=== PATIENT | male | born 1960 | race African-American/Black ===

== ENCOUNTER 2020-01-27 09:20 | Outpatient (RCR) | payer OTHER ==
[~2020-01-27 09:20] MED LIST: ASPIRIN E.C.325 MG PO; ATORVASTATIN; BP pill; DIABETES MED; HCTZ 25MG25 MG PO; LOPRESSOR 225 MG/TAB PO; NORCO 325 MG-51 TAB PO; PEPCID 20MG TAB20 MG PO; PRILOSEC 20MG20 MG PO; TETRACYCLINE 250MG
[2020-02-05] MEDS ORDERED: GLUCOPHAGE850 MG/TAB PO (20:05)
[2020-02-05] MEDS ORDERED: PRAVACHOL80 MG PO (20:07)
[2020-02-05] MEDS ORDERED: PRINZIDE 12.5 M1 TA1 PO (20:11)
[2020-02-05] MEDS ORDERED: ASPIRIN 32325 MG/TAB PO (20:13)
[2020-02-05] MEDS ORDERED: ASPIRIN 81M81 MG/TA2 PO (20:13)
[2020-02-05] MEDS ORDERED: CIPRO 500MG TA500 MG PO ×2 (21:06)
[2020-02-06] MEDS ORDERED: CIPRO 500MG TA500 MG PO (11:29)
== END 2020-03-11 13:13 | disposition home or self-care (01) ==
LOC: WSOH 09:20
DX: M70.841 Other soft tissue disorders related to use, overuse and pressure, right hand (principal); I10 Essential (primary) hypertension; E11.9 Type 2 diabetes mellitus without complications; F32.9 Major depressive disorder, single episode, unspecified; E78.00 Pure hypercholesterolemia, unspecified; Z90.89 Acquired absence of other organs; Z90.49 Acquired absence of other specified parts of digestive tract; Y99.0 Civilian activity done for income or pay

== ENCOUNTER 2020-02-05 19:42 | Emergency (ER) | payer BC ==
[~2020-02-05] VITALS: Ht 180.3 cm; Wt 102.3 kg
[2020-02-05 19:54] VITALS: TEMP 98.9
[2020-02-05] MEDS ORDERED: GLUCOPHAGE850 MG/TAB PO (20:05)
[2020-02-05] MEDS ORDERED: PRAVACHOL80 MG PO (20:07)
[2020-02-05] MEDS ORDERED: PRINZIDE 12.5 M1 TA1 PO (20:11)
[2020-02-05] MEDS ORDERED: ASPIRIN 81M81 MG/TA2 PO (20:13)
[2020-02-05] MEDS ORDERED: ASPIRIN 32325 MG/TAB PO (20:13)
[2020-02-05 20:28] LABS: COLLECTION METHOD CLEAN CATCH
[2020-02-05 20:31] LABS: BASO % 0.2 % (0.0-2.0); EOS # 0.2 (0.0-0.7); EOS % 1.4 % (0-4.0); GRAN # 9.4 (1.4-6.5); GRAN % 70.4 % (42.2-75.2); HEMATOCRIT 41.6 % (42.0-52.0); HEMOGLOBIN 14.1 g/dl (13.5-18.0); LYMPH # 2.4 (1.2-3.4); LYMPH % 18.1 % (20.0-51.0); MEAN CELL VOLUME 96 fl (80.0-100.0); MEAN CORPUSCULAR HEMOGLOBIN 32 pg (27.0-31.0); MEAN CORPUSCULAR HGB CONC 34 g/dl (33.0-37.0); MONO # 1.3 (0.1-0.6); MONO % 9.6 % (1.7-9.3); PLATELET COUNT 202 K/mm3 (130-400); RED BLOOD COUNT 4.35 M/mm3 (4.20-5.60); REDCELL DISTRIBUTION WIDTH-CV 12.4 % (11.5-14.5)
[2020-02-05 20:49] LABS: PH 5 (5-8); SQUAMOUS EPITHELIAL None Seen /hpf; URINE APPEARANCE Clear; URINE BACTERIA None Seen /hpf; URINE BILIRUBIN Negative (NEGATIVE); URINE BLOOD Negative (NEGATIVE); URINE COLOR Yellow; URINE GLUCOSE 3+ (NEGATIVE); URINE KETONE Negative (NEGATIVE); URINE LEUKOCYTE ESTERASE Trace (NEGATIVE); URINE NITRATE Negative (NEGATIVE); URINE PROTEIN(semi-quant) Negative (NEGATIVE); URINE RBC 0-2 /hpf; URINE UROBILINOGEN Negative (NEGATIVE)
[2020-02-05 20:50] LABS: ALBUMIN 4.5 gm/dL (3.5-5.0); BILIRUBIN,TOTAL 0.7 mg/dL (0.0-1.0); C-REACTIVE PROTEIN 8.8 mg/dL (0.0-0.9); CALCIUM 9.6 mg/dL (8.4-10.2); CREATININE, serum 1.26 (0.66-1.25); POTASSIUM 3.8 mmol/L (3.4-5.0)
[2020-02-05] MEDS ORDERED: CIPRO 500MG TA500 MG PO ×2 (21:06)
[2020-02-05 21:41] VITALS: BP 142/81; PULSE 89
[2020-02-06] MEDS ORDERED: CIPRO 500MG TA500 MG PO (11:29)
== END 2020-02-05 21:40 | disposition home or self-care (01) ==
LOC: COL.ER 19:42
PROVIDERS: Family Medicine
DX: N30.90 Cystitis, unspecified without hematuria (principal); N41.9 Inflammatory disease of prostate, unspecified; E11.9 Type 2 diabetes mellitus without complications; I10 Essential (primary) hypertension; Z79.84 Long term (current) use of oral hypoglycemic drugs; Z79.82 Long term (current) use of aspirin
CPT/HCPCS: J0696

== ENCOUNTER 2020-03-11 13:49 | Outpatient (RCR) | payer OTHER ==
[~2020-03-11 13:49] MED LIST changes: +ASPIRIN 32325 MG/TAB PO; +ASPIRIN 81M81 MG/TA2 PO; +CIPRO 500MG TA500 MG PO; +GLUCOPHAGE850 MG/TAB PO; +PRAVACHOL80 MG PO; +PRINZIDE 12.5 M1 TA1 PO
== END 2020-06-09 | disposition home or self-care (01) ==
LOC: WSOH
DX: S80.12XA Contusion of left lower leg, initial encounter (principal); S80.812A Abrasion, left lower leg, initial encounter; I10 Essential (primary) hypertension; E11.69 Type 2 diabetes mellitus with other specified complication; E78.00 Pure hypercholesterolemia, unspecified; Y99.0 Civilian activity done for income or pay